=== PATIENT | female | born 1975 | race Two or more races ===

== ENCOUNTER → 2023-09-03 14:43 | Outpatient (BNVA) | payer SELFPAY | PROVIDERS: Visit Provider Registered Nurse | DX: Z02.79 Encounter for issue of other medical certificate (principal) ==

== ENCOUNTER 2023-12-16 08:52 | Outpatient (REF) | payer MEDICAID, SELFPAY ==
--- NOTE | ~2023-12-16 | XR_ITS ---
EXAMINATION: XR KNEE, RIGHT XR KNEE, LEFT CLINICAL INFORMATION: Chronic pain of both knees. COMPARISON: None TECHNIQUE: AP, lateral, tunnel, and sunrise views of each knee. FINDINGS: RIGHT KNEE: Small joint effusion. No fracture or malalignment. Joint spaces appear well-preserved. Tiny patellar and trochlear osteophytes. Bone mineralization is normal. Soft tissues are unremarkable. LEFT KNEE: Small joint effusion. No fracture or malalignment. Tiny marginal osteophytes in patellofemoral compartment. Joint spaces appear well-preserved. Bone mineralization is normal. Soft tissues are unremarkable. XR/XR knee LT 4V IMPRESSION: 1. Minimal patellofemoral compartment osteoarthritis in both knees. 2. Small bilateral joint effusions. Electronically signed by: Sam Guzmán MD 12/22/2023 11:45 AM EDT
--- NOTE | ~2023-12-16 | XR_ITS ---
EXAMINATION: XR KNEE, RIGHT XR KNEE, LEFT CLINICAL INFORMATION: Chronic pain of both knees. COMPARISON: None TECHNIQUE: AP, lateral, tunnel, and sunrise views of each knee. FINDINGS: RIGHT KNEE: Small joint effusion. No fracture or malalignment. Joint spaces appear well-preserved. Tiny patellar and trochlear osteophytes. Bone mineralization is normal. Soft tissues are unremarkable. LEFT KNEE: Small joint effusion. No fracture or malalignment. Tiny marginal osteophytes in patellofemoral compartment. Joint spaces appear well-preserved. Bone mineralization is normal. Soft tissues are unremarkable. XR/XR knee RT 4V IMPRESSION: 1. Minimal patellofemoral compartment osteoarthritis in both knees. 2. Small bilateral joint effusions. Electronically signed by: Sam Guzmán MD 12/22/2023 11:45 AM EDT
== END 2023-12-16 08:53 | disposition home or self-care (01) ==
LOC: HO.HHCX 08:52
PROVIDERS: Visit Provider Internal Medicine
DX: M25.561 Pain in right knee (principal); M25.562 Pain in left knee; G89.29 Other chronic pain
CPT/HCPCS: 36415; 73564; 84550; 85652; 86140; 86200; 86431

== ENCOUNTER 2023-12-16 09:26 | Outpatient (REF) | payer MEDICAID, SELFPAY ==
[2023-12-16 11:51] LABS: Rheumatoid Factor < 13.0 IU/mL (<15.0)
[2023-12-16 11:53] LABS: C Reactive Protein 0.69 mg/dL (< or = 0.50); Uric Acid 3.1 mg/dL (2.4-5.7)
[2023-12-16 12:17] LABS: Erythrocyte Sedimentation Rate 8 MM/HR (0-20)
[2023-12-18 12:43] LABS: Cyclic Citrullinated Peptide <16 UNITS
== END 2023-12-16 09:27 | disposition home or self-care (01) ==
LOC: HO.HHCL 09:26
PROVIDERS: Visit Provider Internal Medicine
DX: M25.561 Pain in right knee (principal); M25.562 Pain in left knee; G89.29 Other chronic pain
CPT/HCPCS: 36415; 84550; 85652; 86140; 86200; 86431

== ENCOUNTER → 2024-02-24 09:36 | Outpatient (BNVA) | payer MEDICAID, SELFPAY | PROVIDERS: PCP Internal Medicine; Visit Provider Physician Assistant Surgical ==

== ENCOUNTER 2024-03-10 09:00 | Outpatient (RCR) | payer MEDICAID, SELFPAY | END 2024-03-25 13:23 | disposition home or self-care (01) | LOC: HO.PTCHIC 09:00 | PROVIDERS: PCP Internal Medicine; Visit Provider Internal Medicine | DX: M25.561 Pain in right knee (principal); M25.562 Pain in left knee | CPT/HCPCS: 97110; 97161 ==

== ENCOUNTER 2024-03-14 08:02 | Outpatient (AMB) | payer MEDICAID, SELFPAY ==
--- NOTE | 2024-03-14 10:14 | A.OFFVIS_ITS ---
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*: Details: Start time: 10.20am, End time: 11.20am ?I spent 55 minutes speaking with the patient on the phone plus an additional 5 minutes reviewing and updating records for a total of 60 minutes HPI Comments Details: Previous weight loss efforts: Self diets, OTC pills, exercise Wakes up: 3am, Sleeps: 9am Breakfast: 9am (oatmeal, 2-3 boiled eggs with crackers) Lunch: skips Dinner: 6pm (chicken, salad, rice) Snacks: snacking on candies between breakfast and dinner and after dinner Exercise: Gym membership Fluids: Coffee (4-5 cups/day with creamer), tea: 3-4/wk (black), soda: none, juice: lemonade or apple juice occasionally, ETOH: none PFSH Medical History (Updated 03/14/24 @ 11:06 by Axel Pino MD) DJD (degenerative joint disease) BMI 35.0-35.9,adult Obesity Surgical History (Updated 02/24/24 @ 09:56 by Diya Lawrence CMA) No history of previous surgery Family History (Updated 02/24/24 @ 09:58 by Diya Lawrence CMA) Mother Diabetes Heart failure with cardiac pacemaker present Hypertension Father High cholesterol Diabetes Circulation problem Son No problems noted. Son No problems noted. Daughter No problems noted. Social History (Updated 02/24/24 @ 09:56 by Diya Lawrence CMA) Alcohol intake: never Patient Tobacco Use Status: Never used Tobacco Physical Exam Vital Signs: BMI result Body Mass Index 35.2 Telehealth Telehealth Telehealth Platform: Telephone Location of provider rendering services: practice address Location of patient: address on file Patient Identification confirmed using: Name, : Yes Telehealth method: voice only Patient verbally consented to treatment: Yes Patient verbally consented to billing insurance company: Yes Patient informed of any privacy concerns related to visit: Yes Minutes spent on Phone/Video with Pt.: 60 Assessment & Plan Assessment & Plan (1) Obesity: Code(s): E66.9 - Obesity, unspecified Category: Medical Qualifiers: Obesity type: due to excess calories Obesity classification: adult class 2 (BMI 35 - 39.9) Serious obesity comorbidity presence: without serious comorbidity Body mass index: BMI 35.0-35.9 Qualified Code(s): E66.812 - Obesity, class 2; E66.09 - Other obesity due to excess calories; Z68.35 - Body mass index [BMI] 35.0-35.9, adult Plan: 1.? Plan for lap sleeve gastrectomy. If diaphragmatic or ventral hernias are present at time of surgery, these will be repaired laparoscopically as well. Risks and complications include possible conversion to an open procedure, anastomotic leak, bleeding requiring transfusion, small bowel obstruction, , DVT and pulmonary embolism, cardiac, or pulmonary complications, as gm complications such as anastomotic ulcer, insufficient weight loss and vitamin deficiencies. I emphasized the importance of close follow-up, adherence to instructions and good communication. 2. You will receive a link of our software nayely to generate an individualized nutritional and exercise plan specific for you. Please send me a screenshot of the plans you will generate Meal to include lean meat (beef, fish, pork, turkey, chicken), or barbadian yogurt, or egg whites, or beans with a salad with olive oil and fruits (berries, pears, apples, kiwi). Avoid salt, breads, potatoes, rice, pasta, desserts. ?3. If you choose shakes, each shake would be drunk slowly, like coffee in a period of 2 hours. ?4. If you choose bars, cut each bar in 4 pieces and eat each piece in 30min ?to make each bar last 2 hours. ?5. I emphasized the importance of measuring accurately the food portion and measure it when serving the food in plate ?6. The meal portions include a specific number of forks of meat and salad. You always eat the meat portion but you can replace up to half of salad/vegetables portion with rice, potatoes or pasta, or a fruit ?if you like. The less you do it the better weight loss will be. ?7. One full-size fork is what it can be scooped on the fork without falling aside and not what can be bit with the fork. Use regular forks like those you find in a typical restaurant. ?8.? Please send me weight measurements with your body composition scale tomorrow, as we discussed, and then send me weight measurements as soon as possible and then once a week. Always include your diet and exercise plan. 9. The best choice would be to purchase a stationary bike, elliptical or treadmill at home that can track calories. Let me know if you do so I can give you an exercise plan. ?10.?It is important of avoiding and for at least 18 months postoperatively and has been discussed at the infosession. ?11. Goal is to lose at least 1.5-2lbs per week ?12. Goal to lose 10% of your weight before surgery, which is about 18lbs. Ultimate weight goal: 162lbs before surgery 13. Please follow the diet plan exactly without any change. If you don't like something about the plan or you feel hungry you need to communicate with me so I can help you revise the plan. You should not change the plan yourself. 14. To be scheduled for EGD due to the history of sleeve gastrectomy and anemia. The possibility of biopsies was discussed. Patient needs to avoid use of NSAIDs and aspirin for 1 week prior to EGD. You must be on liquids only the day before your endoscopy. Risks of perforation and bleeding was discussed with the patient. This will be an outpatient procedure with IV sedation. Orders: Orders Insulin Today E66.9 - Obesity, unspecified, Z68.35 - Body mass index [BMI] 35.0-35.9, adult H Pylori Breath Test Today E66.9 - Obesity, unspecified, Z68.35 - Body mass index [BMI] 35.0-35.9, adult C Reactive Protein Today E66.9 - Obesity, unspecified, Z68.35 - Body mass index [BMI] 35.0-35.9, adult Vitamin A Today E66.9 - Obesity, unspecified, Z68.35 - Body mass index [BMI] 35.0-35.9, adult TSH reflex Free T4 Today E66.9 - Obesity, unspecified, Z68.35 - Body mass index [BMI] 35.0-35.9, adult Vitamin D 25-OH Total Today E66.9 - Obesity, unspecified, Z68.35 - Body mass index [BMI] 35.0-35.9, adult XR chest 2V Today E66.9 - Obesity, unspecified, Z68.35 - Body mass index [BMI] 35.0-35.9, adult ECG 12 lead EKG Today E66.9 - Obesity, unspecified, Z68.35 - Body mass index [BMI] 35.0-35.9, adult FL upper GI w air Today E66.9 - Obesity, unspecified, Z68.35 - Body mass index [BMI] 35.0-35.9, adult Hemoglobin A1c Today E66.9 - Obesity, unspecified, Z68.35 - Body mass index [BMI] 35.0-35.9, adult Complete Blood Count Auto Diff Today E66.9 - Obesity, unspecified, Z68.35 - Body mass index [BMI] 35.0-35.9, adult Lipid Panel Today E66.9 - Obesity, unspecified, Z68.35 - Body mass index [BMI] 35.0-35.9, adult IRON PROFILE Today E66.9 - Obesity, unspecified, Z68.35 - Body mass index [BMI] 35.0-35.9, adult Comprehensive Met. Panel Today E66.9 - Obesity, unspecified, Z68.35 - Body mass index [BMI] 35.0-35.9, adult Vitamin B12 and Folate Today E66.9 - Obesity, unspecified, Z68.35 - Body mass index [BMI] 35.0-35.9, adult Zinc Today E66.9 - Obesity, unspecified, Z68.35 - Body mass index [BMI] 35.0- 35.9, adult Vitamin B1 Today E66.9 - Obesity, unspecified, Z68.35 - Body mass index [BMI] 35.0-35.9, adult Ferritin Today E66.9 - Obesity, unspecified, Z68.35 - Body mass index [BMI] 35.0-35.9, adult US abdomen comp w elastography Today E66.9 - Obesity, unspecified, Z68.35 - Body mass index [BMI] 35.0-35.9, adult Referrals Nutrition/Dietitian Referral E66.9 - Obesity, unspecified, Z68.35 - Body mass index [BMI] 35.0-35.9, adult Behavioral Health Referral E66.9 - Obesity, unspecified, Z68.35 - Body mass index [BMI] 35.0-35.9, adult
[2024-03-14 10:37] VITALS: BMI 35.2
== END 2024-03-14 11:22 | disposition home or self-care (01) ==
LOC: HO.HBS 08:02
PROVIDERS: PCP Internal Medicine; Visit Provider Surgery
DX: E66.812 Obesity, class 2 (principal); E66.09 Other obesity due to excess calories; Z68.35 Body mass index [BMI] 35.0-35.9, adult
CPT/HCPCS: 99205

== ENCOUNTER → 2024-03-14 08:02 | Outpatient (BNVA) | payer MEDICAID, SELFPAY | PROVIDERS: PCP Internal Medicine; Visit Provider Surgery ==